=== PATIENT | male | born 1975 | race Caucasian/White ===

== ENCOUNTER 2016-05-02 08:59 | Emergency (ER) | payer OTHER ==
[2016-05-02 08:59] VITALS: BMI 29.4
[2016-05-02 09:17] VITALS: TEMP 98.1
--- NOTE | 2016-05-02 09:39 | ED PDOC ---
Arrival/HPI - General Chief Complaint: Upper Extremity Problem/Injury Time Seen by Provider: 05/02/16 09:28 Historian: Patient - History of Present Illness Narrative History of Present Illness (Text): 05/02/16 09:36 41 y/o male, no pmh, nkda, last tetanus under 2 years ago, c/o lt. hand thumb smashed injury by the door about 4 hours ago. Pt. stated that he was bleeding with bruising to the lt. thumb nail, no numbness or tingling, able to flex and extend, no dizziness, no rash, n o other medical or psychological complaint. Past Medical History - Provider Review Nursing Documentation Reviewed: Yes - Infectious Disease Hx of Infectious Diseases: None - Psychiatric Hx Psychophysiologic Disorder: No Hx Substance Use: No - Anesthesia Hx Anesthesia: No Hx Anesthesia Reactions: No Hx Malignant Hyperthermia: No Family/Social History - Physician Review Nursing Documentation Reviewed: Yes Family/Social History: Unknown Family HX Smoking Status: Never Smoked Hx Alcohol Use: No Hx Substance Use: No Allergies/Home Meds Allergies/Adverse Reactions: Allergies No Known Allergies Allergy (Verified 05/02/16 09:17) Review of Systems - Review of Systems Constitutional: absent: Fatigue, Fevers Eyes: absent: Vision Changes Respiratory: absent: SOB, Cough Cardiovascular: absent: Chest Pain Gastrointestinal: absent: Abdominal Pain, Nausea, Vomiting Genitourinary Male: absent: Dysuria Musculoskeletal: Arthralgias. absent: Back Pain, Neck Pain, Joint Swelling, Myalgias Skin: absent: Rash, Pruritis Neurological: absent: Headache Physical Exam Vital Signs Reviewed: Yes Vital Signs Temp Pulse Resp BP Pulse Ox 05/02/16 11:01 72 18 128/79 99 05/02/16 09:09 98.1 F 75 19 137/86 98 Temperature: Afebrile Blood Pressure: Normal Pulse: Regular Respiratory Rate: Normal Appearance: Positive for: Well-Appearing, Non-Toxic, Comfortable Pain Distress: Moderate Mental Status: Positive for: Alert and Oriented X 3 - Systems Exam Head: Present: Atraumatic, Normocephalic Pupils: Present: PERRL Extroacular Muscles: Present: EOMI Conjunctiva: Present: Normal Mouth: Present: Moist Mucous Membranes Neck: Present: Normal Range of Motion Respiratory/Chest: Present: Clear to Auscultation, Good Air Exchange. No: Respiratory Distress, Accessory Muscle Use Cardiovascular: Present: Regular Rate and Rhythm, Normal S1, S2. No: Murmurs Abdomen: Present: Normal Bowel Sounds. No: Tenderness, Distention, Peritoneal Signs, Rebound, Guarding Back: Present: Normal Inspection Upper Extremity: Present: Normal Inspection, Normal ROM, NORMAL PULSES, Neurovascularly Intact, Capillary Refill < 2s, Other (Lt. hand thumb: +ttp and approx. 70 percent subungal hematoma noted to the nail region, no laceration or abrasion, FROM without limitation, sensation intact, motor 5/5, +radial pulse, capillary refill< 2 seconds, neurovascular intact. ). No: Cyanosis, Edema, Deformity Lower Extremity: Present: Normal Inspection. No: Edema Neurological: Present: GCS=15, CN II-XII Intact, Speech Normal Skin: Present: Warm, Dry, Normal Color. No: Rashes Psychiatric: Present: Alert, Oriented x 3, Normal Insight, Normal Concentration Medical Decision Making ED Course and Treatment: 05/02/16 09:39 -motrin -xray -observe and reassess 05/02/16 10:39 -sensation intact, motor 5/5, clean with betadine/alcohol prep, #18 gauge needle nail trephination performed and obtained approx. 1cc of blood from the nail, irrigated with the 100cc of normal saline and clean with betadine, bacitracin and gauze dressing, hemostasis obtained, sensation intact, motor 5/5 , pt. feels much better with no pain now to the thumb, finger splint applied, neurovascular intact. -keflex and finger splint applied, discussed with the patient about the x-ray findings and advised outpatient hand specialist follow up . -Discharge home with keflex, motrin, finger splint, keep the dressing dry and clean, follow up with your own pmd and hand specialist within 2 days, return to the ER for any new or worsening signs or symptoms. - RAD Interpretation Radiology Orders: 05/02/16 09:35 HAND LEFT THUMB [RAD] Stat acute left distal tuft thumb fracture. Broadband Engineer: Radiologist - Medication Orders Current Medication Orders: Discontinued Medications Cephalexin Monohydrate (Keflex) 500 mg PO STAT STA PRN Reason: Protocol Stop: 05/02/16 10:39 Last Admin: 05/02/16 10:48 Dose: 500 MG Ibuprofen (Motrin Tab) 600 mg PO STAT STA Stop: 05/02/16 09:36 Last Admin: 05/02/16 09:56 Dose: 600 MG MAR Pain/Vitals Document 05/02/16 09:56 EWAndrea (Rec: 05/02/16 09:57 EWO [id number]) Pain Reassessment Is This A Pain ReAssessment? No Sleep Is patient sleeping during reassessment? No Presence of Pain Presence of Pain Yes Pain Scale Used Pain Scale Used Numeric Location Left, Right or Bilateral Left Pain Location Body Site Finger Description Constant Intensity 5 Scale Used Numeric Pain Behavior Guarding - PA / TOWER SWITCH OPERATOR / Resident Statement MD/DO has reviewed & agrees with the documentation as recorded. Disposition/Present on Arrival - Present on Arrival Any Indicators Present on Arrival: No History of DVT/PE: No History of Uncontrolled Diabetes: No Urinary Catheter: No History of Decub. Ulcer: No History Surgical Site Infection Following: None - Disposition Have Diagnosis and Disposition been Completed?: Yes Diagnosis: Thumb fracture, Subungual hematoma Disposition: HOME/ ROUTINE Disposition Time: 10:43 Patient Plan: Discharge Condition: IMPROVED Discharge Instructions (ExitCare): Thumb Fracture (ED) Print Language: [place] Additional Instructions: Discharge home with keflex, motrin, finger splint, keep the dressing dry and clean, follow up with your own pmd and hand specialist within 2 days, return to the ER for any new or worsening signs or symptoms. Prescriptions: Cephalexin [Keflex] 500 mg PO QID #36 capsule Ibuprofen [Motrin Tab] 800 mg PO TID PRN #21 tab PRN Reason: Other Referrals: PCP,NO [Primary Care Provider] - Follow up with primary Nuris Carl MD [Staff Provider] - Follow up with primary [facility] [place] [facility] [place] - Follow up with primary Forms: WORK NOTE
[2016-05-02 11:01] VITALS: BP 128/79; PULSE 72; RESP 18; O2SAT 99
--- NOTE | 2016-05-02 12:42 | RAD ---
PROCEDURE: Left Hand Radiographs. HISTORY: lt. hand thumb distal tuft injury COMPARISON: None. FINDINGS: BONES: Distal tuft fracture left thumb. The finding is marked on the study for review. JOINTS: Normal. No osteoarthritic changes. SOFT TISSUES: Soft tissue swelling attests to the acuity of the fracture.No visualized/radiopaque foreign body OTHER FINDINGS: None. IMPRESSION: Acute distal tuft fracture left thumb. Concordant results with the preliminary interpretation rendered by the emergency department physician procedure.
== END 2016-05-02 10:57 | disposition home or self-care (01) ==
LOC: ED 08:59
DX: S62.522A Displaced fracture of distal phalanx of left thumb, initial encounter for closed fracture (principal); S60.012A Contusion of left thumb without damage to nail, initial encounter; W23.0XXA Caught, crushed, jammed, or pinched between moving objects, initial encounter; Y93.89 Activity, other specified; Y92.89 Other specified places as the place of occurrence of the external cause

== ENCOUNTER 2016-09-01 11:15 | Emergency (ER) | payer OTHER ==
[2016-09-01 12:07] VITALS: BP 113/73; PULSE 78; RESP 16; TEMP 98.9; O2SAT 99; BMI 30.3
--- NOTE | 2016-09-01 14:07 | RAD ---
HISTORY: back pain COMPARISON: No prior. FINDINGS: BONES: Alignment maintained. No fracture. DISC SPACES: Normal. SOFT TISSUES: Normal. OTHER FINDINGS: None. IMPRESSION: Normal radiographs of the thoracic spine.
--- NOTE | 2016-09-01 14:10 | ED PDOC ---
Arrival/HPI - General Chief Complaint: Upper Extremity Problem/Injury Time Seen by Provider: 09/01/16 11:36 Historian: Patient - History of Present Illness Narrative History of Present Illness (Text): 09/01/16 14:06 41yo male who present with complaint of intermittent right sided scapular back pain x weeks. He also reports purulent discharge from his right thumb nail. Notes that he injured the finger months ago and was seen by a hand specialist who removed his nail. States the nail grew back until a week ago when he started noticing the purulent discharge after shower and mild pain on his lateral finger. He states his not having back pain now, pain is usually after exertion. He denies fever, chills, trauma, chest pain, SOB, any other complaint. Past Medical History - Provider Review Nursing Documentation Reviewed: Yes - Infectious Disease Hx of Infectious Diseases: None - Psychiatric Hx Psychophysiologic Disorder: No Hx Substance Use: No - Anesthesia Hx Anesthesia: No Hx Anesthesia Reactions: No Hx Malignant Hyperthermia: No Family/Social History - Physician Review Nursing Documentation Reviewed: Yes Family/Social History: Unknown Family HX Smoking Status: Never Smoked Hx Alcohol Use: No Hx Substance Use: No Allergies/Home Meds Allergies/Adverse Reactions: Allergies No Known Allergies Allergy (Verified 05/05/16 10:22) Review of Systems - Physician Review All systems were reviewed & negative as marked: Yes - Review of Systems Constitutional: Normal Eyes: Normal ENT: Normal Respiratory: Normal Cardiovascular: Normal Gastrointestinal: Normal Genitourinary Male: Normal Musculoskeletal: Arthralgias (Scapular pain) Skin: Other (Purulent discharge fromright thumb) Neurological: Normal Endocrine: Normal Hemo/Lymphatic: Normal Psychiatric: Normal Physical Exam Vital Signs Reviewed: Yes Vital Signs Temp Pulse Resp BP Pulse Ox 09/01/16 12:02 98.9 F 78 16 113/73 99 Temperature: Afebrile Blood Pressure: Normal Pulse: Regular Respiratory Rate: Normal Appearance: Positive for: Well-Appearing, Non-Toxic, Comfortable Pain Distress: None Mental Status: Positive for: Alert and Oriented X 3 - Systems Exam Head: Present: Atraumatic, Normocephalic Pupils: Present: PERRL Extroacular Muscles: Present: EOMI Conjunctiva: Present: Normal Mouth: Present: Moist Mucous Membranes Neck: Present: Normal Range of Motion Respiratory/Chest: Present: Clear to Auscultation, Good Air Exchange. No: Respiratory Distress, Accessory Muscle Use Cardiovascular: Present: Regular Rate and Rhythm, Normal S1, S2. No: Murmurs Abdomen: Present: Normal Bowel Sounds. No: Tenderness, Distention, Peritoneal Signs Back: No: Midline Tenderness, Paraspinal Tenderness, Pain with Leg Raise Upper Extremity: Present: Normal Inspection, Normal ROM (Right thumb), NORMAL PULSES, Tenderness (Lateral distal right finger tip), Capillary Refill < 2s. No : Cyanosis, Edema, Swelling, Erythema, Temperature Abnormalties, Deformity Lower Extremity: Present: Normal Inspection. No: Edema Neurological: Present: GCS=15, CN II-XII Intact, Speech Normal Skin: Present: Warm, Dry, Normal Color. No: Rashes Psychiatric: Present: Alert, Oriented x 3, Normal Insight, Normal Concentration Medical Decision Making ED Course and Treatment: 09/01/16 14:15 thoracic spine xray - No acute finding PT was afebrile in ED. He had pain on his lateral distal right thumb. No erythema. No crepitus was noted. No discharge. Pt was placed on abx. Referred to the clinic. TRT ED for any worsening symptoms - RAD Interpretation Radiology Orders: 09/01/16 12:33 DORSAL (THORACIC) SPINE [RAD] Stat Disposition/Present on Arrival - Present on Arrival Any Indicators Present on Arrival: No History of DVT/PE: No History of Uncontrolled Diabetes: No Urinary Catheter: No History of Decub. Ulcer: No History Surgical Site Infection Following: None - Disposition Have Diagnosis and Disposition been Completed?: Yes Diagnosis: Thoracic sprain, Finger infection Disposition: HOME/ ROUTINE Disposition Time: 14:05 Patient Plan: Discharge Condition: STABLE Discharge Instructions (ExitCare): Back Pain (ED) Additional Instructions: Follow up with your Doctor/clinic Return to ED for any new or worsening symptoms Prescriptions: Cephalexin [Keflex] 500 mg PO QID #28 capsule Referrals: PCP,NO [Primary Care Provider] - Follow up with primary [facility] at [facility] [place] [Outside] - Follow up with primary
== END 2016-09-01 15:07 | disposition home or self-care (01) ==
LOC: ED 11:15
DX: S23.3XXA Sprain of ligaments of thoracic spine, initial encounter (principal); X58.XXXA Exposure to other specified factors, initial encounter; L08.9 Local infection of the skin and subcutaneous tissue, unspecified